=== PATIENT | male | born 1990 | race African-American/Black ===

== ENCOUNTER 2019-01-13 15:52 | Emergency (ER) | payer OTHER ==
[2019-01-13 16:23] VITALS: BP 133/87
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
[2019-01-13] MEDS ORDERED: TYLENOL #3 PO ONE (21:28)
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
== END 2019-01-13 21:45 | disposition home or self-care (01) ==
LOC: ED 15:52
DX: S00.03XA Contusion of scalp, initial encounter (principal); S00.83XA Contusion of other part of head, initial encounter; Y04.8XXA Assault by other bodily force, initial encounter; Y93.89 Activity, other specified; Y92.69 Other specified industrial and construction area as the place of occurrence of the external cause; Y99.8 Other external cause status
CPT/HCPCS: 70450; 70486; 99284